=== PATIENT | female | born 1970 | race Caucasian/White ===

== ENCOUNTER → 2016-09-03 | Outpatient (CLI) | payer BC ==
[2016-09-03 14:08] VITALS: BP 125/75; PULSE 80; RESP 16; TEMP 97.7; BMI 25.0
--- NOTE | 2016-10-09 02:57 | P.PN ---
Progress Note - Text DATE OF SERVICE: 09/03/2016 CHIEF COMPLAINT: Bariatric assessment. HISTORY OF PRESENT ILLNESS: Addison Oviedo is a 46-year-old female who was last seen at the bariatric center in April 2016 now 5 months ago. At her height of 5 feet 9 inches, her ideal body weight is 168 pounds. Her highest weight was 260 pounds. Today she comes in weighing 169 pounds. She has maintained a 91 pounds weight loss. Actually, she has gained 8 pounds in the last for 5 months. Percent excess weight loss is 99%. Body mass index is reduced at 38.5 down to 25.1. Total BMI point reduction is 13.4. She reports hunger. She presents for further evaluation and management. PAST MEDICAL HISTORY: 1. Morbid obesity, resolved. PAST SURGICAL HISTORY: 1. Lap band surgery 2005. 2. Panniculectomy. 3. Breast lift. 4. Inguinal hernia repair. 5. Tubal ligation. MEDICATIONS: Multivitamins. ALLERGIES: Denies. SOCIAL HISTORY: Former tobacco user. She is . FAMILY HISTORY: Pertinent for coronary artery disease including triple bypass, hypertension. REVIEW OF SYSTEMS: CONSTITUTIONAL: Total weight loss of 91 pounds. Weight gain of 8 pounds in 5 months. Percent excess weight loss of 99%. [place] body weight of 168 pounds. Initial weight 260 pounds. She is only overweight x 1 pound. Body mass index reduced from 38.5 down to 25.3, BMI point reduction is 13.4. GASTROINTESTINAL: No reports of gastroesophageal reflux. No reports of change in bowel habits. MUSCULOSKELETAL: No reports of joint pain or back pain. HEENT: Denies any trouble with vision, hearing or nosebleeds. No difficulty swallowing. LYMPHATIC: The patient denies any lumps and bumps around the neck. ENDOCRINE: Denies any thyroid disorders. Denies any blood sugar glucose intolerance. RESPIRATORY: Denies pneumonia. Denies any troubles with breathing or dyspnea on exertion. CARDIOVASCULAR: Denies any chest pain, palpitations, or recent heart attacks. GENITOURINARY: Denies any blood in urine or increased urinary frequency. NEUROLOGIC: Denies any numbness or tingling along the distal extremities. No seizure disorders or headaches. PSYCHIATRIC: Denies depression or suidical ideation. HEMATOLOGIC: Denies any abnormal bleeding or bruising. PHYSICAL EXAM: VITAL SIGNS: 97.7, 80, 16, 125/75; 5 feet 9 inches, 169 pounds. Body mass index 25.1. ABDOMEN: Soft. Nontender. No palpable incisional hernia. Nontender along the port site. GENERAL: Well-developed female no acute distress. HEENT: No scleral icterus. Extraocular movements grossly intact. Moist buccal mucosa. NECK: Supple without lymphadenopathy. RESPIRATORY: Chest nonlabored respirations. CARDIOVASCULAR: Regular rate and rhythm. MUSCULOSKELETAL: No clubbing, cyanosis or edema. NEURO: No focal or lateralizing signs. Cranial nerves II through XII grossly within normal limits. PSYCH: Appropriate affect. Alert and oriented to person, place, and time. ASSESSMENT: 1. History of adjustable gastric band. 2. Adjustment of gastric band. 3. Appetite. 4. Morbid obesity due to excess calories, now resolved. 5. Body mass index reduced from 38.5 down to 25.1. 6. Overweight. PLAN: 1. Recommend adjustment. 2. May also benefit from bariatric metabolic panel with weight gain. PROCEDURE: Adjustment of gastric band. DESCRIPTION: After verbal consent, the patient was laid supine. The skin was cleansed. The skin was localized with 1% lidocaine without epinephrine 1 mL. A 22-gauge Alvarado needle was used to access the port to the left upper quadrant; 2.6 mL was found in the band and 0.6 mL was added. Total was 3.2 mL. She was able to tolerate drinking with mild restrictive symptoms as expected. Recommend followup in approximately 4 weeks or sooner should she have persistent hunger.
== END | disposition home or self-care (01) ==
LOC: BARWHC3 13:25
PROVIDERS: ATTEND Surgery Plastic and Reconstructive Surgery
DX: Z48.815 Encounter for surgical aftercare following surgery on the digestive system (principal); E66.3 Overweight; Z68.25 Body mass index [BMI] 25.0-25.9, adult; Z98.84 Bariatric surgery status
CPT/HCPCS: 99212

== ENCOUNTER → 2017-11-04 | Outpatient (CLI) | payer BC ==
--- NOTE | 2017-11-04 17:44 | P.PN ---
Subjective Progress Note Date: 11/04/17 DATE OF SERVICE: 11/04/2017 CHIEF COMPLAINT: Bariatric assessment. HISTORY OF PRESENT ILLNESS: Addison Oviedo is a 47-year-old female who was last seen at the bariatric center in March 2017 now 7 months ago. At her height of 5 feet 9 inches, her ideal body weight is 168 pounds. Her highest weight was 260 pounds. Today she comes in with weight gain. Body mass index is reduced at 38.5. She reports hunger. She presents for further evaluation and management. She had fluid removed last March 2017. 0.[address] Haynes. She denies GERD. PAST MEDICAL HISTORY: 1. Morbid obesity, initial BMI 38.5 2. Gastroesophageal reflux disease PAST SURGICAL HISTORY: 1. Lap band surgery 2005. 2. Panniculectomy. 3. Breast lift. 4. Inguinal hernia repair. 5. Tubal ligation. MEDICATIONS: Multivitamins. ALLERGIES: Denies. SOCIAL HISTORY: Former tobacco user. She is . FAMILY HISTORY: Pertinent for coronary artery disease including triple bypass, hypertension. REVIEW OF SYSTEMS: CONSTITUTIONAL: [place] body weight of 168 pounds. Initial weight 260 pounds. Body mass index reduced from 38.5. GASTROINTESTINAL: No reports of gastroesophageal reflux. No reports of change in bowel habits. MUSCULOSKELETAL: No reports of joint pain or back pain. HEENT: Denies any trouble with vision, hearing or nosebleeds. No difficulty swallowing. LYMPHATIC: The patient denies any lumps and bumps around the neck. ENDOCRINE: Denies any thyroid disorders. Denies any blood sugar glucose intolerance. RESPIRATORY: Denies pneumonia. Denies any troubles with breathing or dyspnea on exertion. CARDIOVASCULAR: Denies any chest pain, palpitations, or recent heart attacks. GENITOURINARY: Denies any blood in urine or increased urinary frequency. NEUROLOGIC: Denies any numbness or tingling along the distal extremities. No seizure disorders or headaches. PSYCHIATRIC: Denies depression or suidical ideation. HEMATOLOGIC: Denies any abnormal bleeding or bruising. PHYSICAL EXAM: VITAL SIGNS: 5 feet 9 inches Vital Signs Temp 98.5 F 11/04/17 17:47 Pulse 76 11/04/17 17:47 Resp 16 11/04/17 17:47 BP 118/73 11/04/17 17:47 Pulse Ox ABDOMEN: Soft. Nontender. No palpable incisional hernia. Nontender along the port site. GENERAL: Well-developed female no acute distress. HEENT: No scleral icterus. Extraocular movements grossly intact. Moist buccal mucosa. NECK: Supple without lymphadenopathy. RESPIRATORY: Chest nonlabored respirations. CARDIOVASCULAR: Regular rate and rhythm. MUSCULOSKELETAL: No clubbing, cyanosis or edema. NEURO: No focal or lateralizing signs. Cranial nerves II through XII grossly within normal limits. PSYCH: Appropriate affect. Alert and oriented to person, place, and time. SKIN: Well perfused. Good skin turgor. ASSESSMENT: 1. History of adjustable gastric band. 2. Adjustment of gastric band. 3. Appetite. 4. Morbid obesity due to excess calories, now resolved. 5. Body mass index reduced from 38.5. 6. Overweight. PLAN: 1. Band evaluated with 1.5 mL 2. Added 0.4 mL 3. Total of 1.9 mL 4. Follow as needed. PROCEDURE: Adjustment of gastric band. DESCRIPTION: After verbal consent, the patient was laid supine. The skin was cleansed. The skin was localized with 1% lidocaine without epinephrine 1 mL. A 22-gauge Alvarado needle was used to access the port to the left upper quadrant; 1.5 mL was found in the band and 0.4 mL was added. Total was 1.9 mL. She was able to tolerate drinking with mild restrictive symptoms as expected. Recommend followup in approximately 4 weeks or sooner should she have persistent hunger.
[2017-11-04 17:50] VITALS: BP 118/73; PULSE 76; RESP 16; TEMP 98.5
== END | disposition home or self-care (01) ==
LOC: BARWHC3 15:37
PROVIDERS: ATTEND Surgery Plastic and Reconstructive Surgery
DX: E66.01 Morbid (severe) obesity due to excess calories (principal); Z98.84 Bariatric surgery status; Z68.38 Body mass index [BMI] 38.0-38.9, adult
CPT/HCPCS: 99212

== ENCOUNTER → 2018-02-24 | Outpatient (CLI) | payer BC ==
--- NOTE | 2018-02-24 16:11 | P.PN ---
Subjective Progress Note Date: 02/24/18 DATE OF SERVICE: 02/24/2018 CHIEF COMPLAINT: Bariatric assessment. HISTORY OF PRESENT ILLNESS: Addison Oviedo is a 48-year-old female who is status adjustable gastric band placement. She reports moderate weight gain. At her height of 5 feet 9 inches, her ideal body weight is 168 pounds. Her highest weight was 260 pounds. Today she comes in with weight gain. Body mass index was 38.5. Lifetime weight loss 82 pounds. Percent excess weight loss 89%. PAST MEDICAL HISTORY: 1. Morbid obesity, initial BMI 38.5 2. Gastroesophageal reflux disease PAST SURGICAL HISTORY: 1. Lap band surgery 2005. 2. Panniculectomy. 3. Breast lift. 4. Inguinal hernia repair. 5. Tubal ligation. MEDICATIONS: Multivitamins. ALLERGIES: Denies. SOCIAL HISTORY: Former tobacco user. She is . FAMILY HISTORY: Pertinent for coronary artery disease including triple bypass, hypertension. REVIEW OF SYSTEMS: CONSTITUTIONAL: [place] body weight of 168 pounds. Initial weight 260 pounds. Body mass index reduced from 38.5. GASTROINTESTINAL: No reports of gastroesophageal reflux. No reports of change in bowel habits. MUSCULOSKELETAL: No reports of joint pain or back pain. HEENT: Denies any trouble with vision, hearing or nosebleeds. No difficulty swallowing. LYMPHATIC: The patient denies any lumps and bumps around the neck. ENDOCRINE: Denies any thyroid disorders. Denies any blood sugar glucose intolerance. RESPIRATORY: Denies pneumonia. Denies any troubles with breathing or dyspnea on exertion. CARDIOVASCULAR: Denies any chest pain, palpitations, or recent heart attacks. GENITOURINARY: Denies any blood in urine or increased urinary frequency. NEUROLOGIC: Denies any numbness or tingling along the distal extremities. No seizure disorders or headaches. PSYCHIATRIC: Denies depression or suidical ideation. HEMATOLOGIC: Denies any abnormal bleeding or bruising. PHYSICAL EXAM: VITAL SIGNS: 5 feet 9 inches, 178 pounds BMI 26.3 Vital Signs Temp 98.4 F 02/24/18 16:14 Pulse 76 02/24/18 16:14 Resp 16 02/24/18 16:14 BP 118/73 02/24/18 16:14 Pulse Ox ABDOMEN: Soft. Nontender. No palpable incisional hernia. Nontender along the port site. GENERAL: Well-developed female no acute distress. HEENT: No scleral icterus. Extraocular movements grossly intact. Moist buccal mucosa. NECK: Supple without lymphadenopathy. RESPIRATORY: Chest nonlabored respirations. CARDIOVASCULAR: Regular rate and rhythm. MUSCULOSKELETAL: No clubbing, cyanosis or edema. NEURO: No focal or lateralizing signs. Cranial nerves II through XII grossly within normal limits. PSYCH: Appropriate affect. Alert and oriented to person, place, and time. SKIN: Well perfused. Good skin turgor. ASSESSMENT: 1. History of adjustable gastric band. 2. Adjustment of gastric band. 3. Morbid obesity due to excess calories, now resolved. PLAN: 1. Adjustment required more than 2 sticks needed at [facility]. 2. Prior goal of 3.6 mL 3. She had 1.2 mL in 4. Added 0.8 mL 5. Total of 2.0 mL PROCEDURE: Adjustment of gastric band. DESCRIPTION: After verbal consent, the patient was laid supine. The skin was cleansed. The skin was localized with 1% lidocaine without epinephrine 1 mL. A 22-gauge Alvarado needle was used to access the port to the left upper quadrant; 1.2 mL was found in the band and 0.8 mL was added. Total was 2.0 mL. She was able to tolerate drinking with mild restrictive symptoms as expected. Recommend followup as needed.
[2018-02-24 16:26] VITALS: BP 118/73; PULSE 76; RESP 16; TEMP 98.4; BMI 26.3
== END | disposition home or self-care (01) ==
LOC: BARWHC3 13:59
PROVIDERS: ATTEND Surgery Plastic and Reconstructive Surgery
DX: Z48.815 Encounter for surgical aftercare following surgery on the digestive system (principal); Z87.891 Personal history of nicotine dependence; Z79.899 Other long term (current) drug therapy; Z98.890 Other specified postprocedural states; Z98.84 Bariatric surgery status
CPT/HCPCS: 99212

== ENCOUNTER → 2018-07-07 | Outpatient (CLI) | payer BC ==
[2018-07-07 15:37] VITALS: BP 131/92; PULSE 88; TEMP 97.6; BMI 25.7
--- NOTE | 2018-07-07 15:59 | P.PN ---
Subjective Progress Note Date: 07/07/18 DATE OF SERVICE: 07/07/2018 CHIEF COMPLAINT: Bariatric assessment. HISTORY OF PRESENT ILLNESS: Addison Oviedo is a 48-year-old female who is status adjustable gastric band placement. She is walking daily. She reports she wants to get down to 150s. At her height of 5 feet 9 inches, her ideal body weight is 168 pounds. Her highest weight was 260 pounds. Today she comes in 174 pounds from 178 pounds, 4 months ago. She has lost 4 pounds, 4 months. Body mass index was 38.5. Today BMI is 25.7. Lifetime weight loss is 86 pounds. Percent excess weight loss 94%. PAST MEDICAL HISTORY: 1. Morbid obesity, initial BMI 38.5 2. Gastroesophageal reflux disease PAST SURGICAL HISTORY: 1. Lap band surgery 2005. 2. Panniculectomy. 3. Breast lift. 4. Inguinal hernia repair. 5. Tubal ligation. MEDICATIONS: Multivitamins. ALLERGIES: Denies. SOCIAL HISTORY: Former tobacco user. She is . FAMILY HISTORY: Pertinent for coronary artery disease including triple bypass, hypertension. REVIEW OF SYSTEMS: CONSTITUTIONAL: [place] body weight of 168 pounds. Initial weight 260 pounds. Body mass index reduced from 38.5. GASTROINTESTINAL: No reports of gastroesophageal reflux. No reports of change in bowel habits. MUSCULOSKELETAL: No reports of joint pain or back pain. HEENT: Denies any trouble with vision, hearing or nosebleeds. No difficulty swallowing. LYMPHATIC: The patient denies any lumps and bumps around the neck. ENDOCRINE: Denies any thyroid disorders. Denies any blood sugar glucose intolerance. RESPIRATORY: Denies pneumonia. Denies any troubles with breathing or dyspnea on exertion. CARDIOVASCULAR: Denies any chest pain, palpitations, or recent heart attacks. GENITOURINARY: Denies any blood in urine or increased urinary frequency. NEUROLOGIC: Denies any numbness or tingling along the distal extremities. No seizure disorders or headaches. PSYCHIATRIC: Denies depression or suidical ideation. HEMATOLOGIC: Denies any abnormal bleeding or bruising. PHYSICAL EXAM: VITAL SIGNS: 5 feet 9 inches, 174 pounds BMI 25.7 Vital Signs Temp 97.6 F 07/07/18 15:33 Pulse 88 07/07/18 15:33 Resp BP 131/92 07/07/18 15:33 Pulse Ox ABDOMEN: Soft. Nontender. No palpable incisional hernia. Nontender along the port site. GENERAL: Well-developed female no acute distress. HEENT: No scleral icterus. Extraocular movements grossly intact. Moist buccal mucosa. NECK: Supple without lymphadenopathy. RESPIRATORY: Chest nonlabored respirations. CARDIOVASCULAR: Regular rate and rhythm. MUSCULOSKELETAL: No clubbing, cyanosis or edema. NEURO: No focal or lateralizing signs. Cranial nerves II through XII grossly within normal limits. PSYCH: Appropriate affect. Alert and oriented to person, place, and time. SKIN: Well perfused. Good skin turgor. ASSESSMENT: 1. History of adjustable gastric band. 2. Adjustment of gastric band. 3. Morbid obesity due to excess calories, now resolved. 4. Dietary surveillance and counseling. PLAN: 1. She reports moderate hunger and agree with adjustment. 2. Apple cider vinegar home remedy described for hunger 3. Recommend increase protein intake to 85 grams daily 4. Prior goal of 3.6 mL 5. She had 2.0 mL in 6. Added 0.3 mL 7. Total of 2.3 mL PROCEDURE: Adjustment of gastric band. DESCRIPTION: After verbal consent, the patient was laid supine. The skin was cleansed. The skin was localized with 1% lidocaine without epinephrine 1 mL. A 22-gauge Alvarado needle was used to access the port to the left upper quadrant; 2.0 mL was found in the band and 0.3 mL was added. Total was 2.3 mL. She was able to tolerate drinking with mild restrictive symptoms as expected. Recommend followup as needed. Objective - Vital Signs Vital signs: Vital Signs Temp 97.6 F 07/07/18 15:33 Pulse 88 07/07/18 15:33 Resp BP 131/92 07/07/18 15:33 Pulse Ox Intake & Output 07/06/18 07/07/18 07/07/18 18:59 06:59 18:59 Weight 78.925 kg
== END | disposition home or self-care (01) ==
LOC: BARWHC3 14:18
PROVIDERS: ATTEND Surgery Plastic and Reconstructive Surgery
DX: E66.01 Morbid (severe) obesity due to excess calories (principal); R63.4 Abnormal weight loss; K21.9 Gastro-esophageal reflux disease without esophagitis; Z98.84 Bariatric surgery status; Z98.51 Tubal ligation status; Z87.891 Personal history of nicotine dependence; Z82.49 Family history of ischemic heart disease and other diseases of the circulatory system; Z71.3 Dietary counseling and surveillance; Z68.25 Body mass index [BMI] 25.0-25.9, adult
CPT/HCPCS: 99212

== ENCOUNTER → 2018-10-27 | Outpatient (CLI) | payer BC ==
[2018-10-27 16:21] VITALS: BP 158/98; PULSE 80; RESP 16; TEMP 97.6; BMI 27.3
--- NOTE | 2018-10-27 17:04 | P.PN ---
Subjective Progress Note Date: 10/27/18 DATE OF SERVICE: 10/27/2018 CHIEF COMPLAINT: Morbid obesity HISTORY OF PRESENT ILLNESS: Addison Oviedo is a 48-year-old female who is status adjustable gastric band placement. She is doing well. She has gained moderate weight. She had fluid previously removed from her band over 4 months ago. At her height of 5 feet 9 inches, her ideal body weight is 168 pounds. Her highest weight was 260 pounds. Today she comes in 185 pounds from 174 pounds, 4 months ago. She has gained 11 pounds, 4 months. Body mass index was 38.5. Today BMI is 27.3. Lifetime weight loss is 75 pounds. Percent excess weight loss 82%. PHYSICAL EXAM: VITAL SIGNS: 5 feet 9 inches, 185 pounds BMI 27.3 Vital Signs Temp 97.6 F 10/27/18 16:19 Pulse 80 10/27/18 16:19 Resp 16 10/27/18 16:19 BP 158/98 10/27/18 16:19 Pulse Ox ABDOMEN: Soft. Nontender. No palpable incisional hernia. Nontender along the port site. GENERAL: Well-developed female no acute distress. HEENT: No scleral icterus. Extraocular movements grossly intact. Moist buccal mucosa. NECK: Supple without lymphadenopathy. RESPIRATORY: Chest nonlabored respirations. CARDIOVASCULAR: Regular rate and rhythm. MUSCULOSKELETAL: No clubbing, cyanosis or edema. NEURO: No focal or lateralizing signs. Cranial nerves II through XII grossly within normal limits. PSYCH: Appropriate affect. Alert and oriented to person, place, and time. SKIN: Well perfused. Good skin turgor. ASSESSMENT: 1. History of adjustable gastric band. 2. Adjustment of gastric band. 3. Morbid obesity due to excess calories, 38.5 to 27.3 4. Dietary surveillance and counseling. PLAN: 1. Band adjustment advised with all fluid removed from prior. 2. Prior goal of 3.6 mL 3. Added 1.8 mL PROCEDURE: Adjustment of gastric band. DESCRIPTION: After verbal consent, the patient was laid supine. The skin was cleansed. The skin was localized with 1% lidocaine without epinephrine 1 mL. A 22-gauge Alvarado needle was used to access the port to the left upper quadrant; 1.8 mL was added. She was able to tolerate drinking with mild restrictive symptoms as expected. Recommend followup as needed. Objective - Vital Signs Vital signs: Vital Signs Temp 97.6 F 10/27/18 16:19 Pulse 80 10/27/18 16:19 Resp 16 10/27/18 16:19 BP 158/98 10/27/18 16:19 Pulse Ox Intake & Output 10/26/18 10/27/18 10/27/18 18:59 06:59 18:59 Weight 83.943 kg
== END | disposition home or self-care (01) ==
LOC: BARWHC3 14:22
PROVIDERS: ATTEND Surgery Plastic and Reconstructive Surgery
DX: Z48.815 Encounter for surgical aftercare following surgery on the digestive system (principal); E66.01 Morbid (severe) obesity due to excess calories; Z71.3 Dietary counseling and surveillance; Z68.27 Body mass index [BMI] 27.0-27.9, adult; Z98.84 Bariatric surgery status
CPT/HCPCS: 99212

== ENCOUNTER → 2019-01-05 | Outpatient (CLI) | payer BC ==
[2019-01-05 14:54] VITALS: BP 114/82; PULSE 91; RESP 16; TEMP 98; BMI 27.0
--- NOTE | 2019-01-05 15:33 | P.PN ---
Subjective Progress Note Date: 01/05/19 DATE OF SERVICE: 01/05/2019 CHIEF COMPLAINT: Morbid obesity HISTORY OF PRESENT ILLNESS: Addison Oviedo is a 48-year-old female who is status adjustable gastric band placement. She is comes in with hunger. No reports of abdominal pain. No nausea or vomiting. No fevers or chills. At her height of 5 feet 9 inches, her ideal body weight is 168 pounds. Her highest weight was 260 pounds. Today she comes in 183 pounds from 185 pounds, 2 months ago. She has lost 2 pounds, 2 months. Body mass index was 38.5. Today BMI is 27.0. Lifetime weight loss is 77 pounds. Percent excess weight loss 84%. PHYSICAL EXAM: VITAL SIGNS: 5 feet 9 inches, 183 pounds BMI 27.0 Vital Signs Temp 98 F 01/05/19 14:51 Pulse 91 01/05/19 14:51 Resp 16 01/05/19 14:51 BP 114/82 01/05/19 14:51 Pulse Ox ABDOMEN: Soft. Nontender. No palpable incisional hernia. Nontender along the port site. GENERAL: Well-developed female no acute distress. HEENT: No scleral icterus. Extraocular movements grossly intact. Moist buccal mucosa. NECK: Supple without lymphadenopathy. RESPIRATORY: Chest nonlabored respirations. CARDIOVASCULAR: Regular rate and rhythm. MUSCULOSKELETAL: No clubbing, cyanosis or edema. NEURO: No focal or lateralizing signs. Cranial nerves II through XII grossly within normal limits. PSYCH: Appropriate affect. Alert and oriented to person, place, and time. SKIN: Well perfused. Good skin turgor. ASSESSMENT: 1. History of adjustable gastric band. 2. Adjustment of gastric band. 3. Morbid obesity due to excess calories, 38.5 to 27.3 4. Dietary surveillance and counseling. PLAN: 1. Band adjustment advised with all fluid removed from prior. 2. Prior goal of 3.6 mL 3. Current of 2.0 mL 4. Placed 0.4 mL with total of 2.4 mL PROCEDURE: Adjustment of gastric band. DESCRIPTION: After verbal consent, the patient was laid supine. The skin was cleansed. The skin was localized with 1% lidocaine without epinephrine 1 mL. Prior of 2.0 mL. A 22-gauge Alvarado needle was used to access the port to the left upper quadrant; 0.4 mL was added. Total of 2.4 mL. She was able to tolerate drinking with mild restrictive symptoms as expected. Recommend followup as needed. Objective - Vital Signs Vital signs: Vital Signs Temp 98 F 01/05/19 14:51 Pulse 91 01/05/19 14:51 Resp 16 01/05/19 14:51 BP 114/82 01/05/19 14:51 Pulse Ox Intake & Output 01/04/19 01/05/19 01/05/19 18:59 06:59 18:59 Weight 83.007 kg - Labs CBC & Chem 7: 01/05/19 15:45 01/05/19 15:45
[2019-01-05 16:00] LABS: Anisocytosis Slight; HCT 33.5 % (34.0-46.0); HGB 10.5 gm/dL (11.4-16.0); Hypochromasia Marked; MCH 23.5 pg (25.0-35.0); MCHC 31.4 g/dL (31.0-37.0); MCV 74.8 fL (80.0-100.0); Mean Platelet Volume 6.4; Microcytosis Slight; Platelet Count 330 k/uL (150-450); RBC 4.48 m/uL (3.80-5.40); RDW 16.3 % (11.5-15.5); WBC 6.5 k/uL (3.8-10.6)
[2019-01-05 16:06] LABS: INR 0.9 (<1.2); Partial Thromboplastin Time 24.2 sec (22.0-30.0); Prothrombin Time 9.9 sec (9.0-12.0)
[2019-01-06 00:10] LABS: African American GFR (CKD) 100.3 (60.0-200.0); Albumin 4.2 g/dL (3.80-4.90); Albumin/Globulin Ratio 1.62 (1.60-3.17); Anion Gap 9.1 mmol/L (4.00-12.00); BUN/Creat Ratio 13.75 Ratio (12.00-20.00); Carbon Dioxide 26.9 mmol/L (21.6-31.8); Chol/HDL Ratio 3.75; Globulin 2.6 g/dL (1.6-3.3); Magnesium 1.7 mg/dL (1.5-2.4); Phosphorus 2.8 mg/dL (2.4-5.1); Potassium 3.9 mmol/L (3.5-5.5); Total Bilirubin 0.2 mg/dL (0.3-1.2); Total Protein 6.8 g/dL (6.2-8.2)
[2019-01-06 00:31] LABS: Iron Saturation 3.39 (12.00-45.00)
[2019-01-06 00:38] LABS: Vitamin D 25 Hydroxy 32.3 ng/mL (30.0-100.0)
[2019-01-06 01:02] LABS: Folate, Serum >24.0 ng/mL
[2019-01-06 01:45] LABS: Hemoglobin A1C 5.4 % (4.0-6.0)
[2019-01-06 11:46] LABS: Zinc, Serum 67 ug/dL (60-130)
[2019-01-07 06:38] LABS: Vitamin A 40 ug/dL (38-106)
[2019-01-07 12:14] LABS: Vit B1(Thiamine) 54 ug/L (38-122)
[2019-01-08 20:19] LABS: Selenium 123 mcg/L (63-160)
== END | disposition home or self-care (01) ==
LOC: BARWHC3 14:25
PROVIDERS: ATTEND Surgery Plastic and Reconstructive Surgery
DX: E66.01 Morbid (severe) obesity due to excess calories (principal); E21.1 Secondary hyperparathyroidism, not elsewhere classified; E89.1 Postprocedural hypoinsulinemia; D50.9 Iron deficiency anemia, unspecified; K44.0 Diaphragmatic hernia with obstruction, without gangrene; E55.9 Vitamin D deficiency, unspecified; K74.1 Hepatic sclerosis; N19 Unspecified kidney failure; K50.90 Crohn's disease, unspecified, without complications; Z68.27 Body mass index [BMI] 27.0-27.9, adult; Z71.3 Dietary counseling and surveillance
CPT/HCPCS: 80053; 80061; 82306; 82525; 82607; 82728; 82746; 83036; 83540; 83550; 83735; 83970; 84100; 84134; 84255; 84425; 84443; 84590; 84630; 85027; 85610; 85730; 99212

== ENCOUNTER → 2019-05-05 | Outpatient (CLI) | payer BC ==
[2019-05-05 09:26] VITALS: BP 119/83; PULSE 80; TEMP 97.9; BMI 25.9
--- NOTE | 2019-05-05 10:14 | P.PN ---
Subjective Progress Note Date: 05/05/19 DATE OF SERVICE: 05/05/2019 CHIEF COMPLAINT: Morbid obesity HISTORY OF PRESENT ILLNESS: Addison Oviedo is a 49-year-old female who is status adjustable gastric band placement. She does not have a food journal. She has increased carbohydrate intake. She denies much restriction. At her height of 5 feet 9 inches, her ideal body weight is 168 pounds. Her highest weight was 260 pounds. Today she comes in 176 pounds from 183 pounds, 4 months ago. She has lost 7 pounds, 4 months. Body mass index was 38.5. Today BMI is 26.0. Lifetime weight loss is 84 pounds. Percent excess weight loss 92 %. PHYSICAL EXAM: VITAL SIGNS: 5 feet 9 inches, 176 pounds BMI 26.0 Vital Signs Temp 97.9 F 05/05/19 09:20 Pulse 80 05/05/19 09:20 Resp BP 119/83 05/05/19 09:20 Pulse Ox ABDOMEN: Soft. Nontender. No palpable incisional hernia. Nontender along the port site. GENERAL: Well-developed female no acute distress. HEENT: No scleral icterus. Extraocular movements grossly intact. Moist buccal mucosa. NECK: Supple without lymphadenopathy. RESPIRATORY: Chest nonlabored respirations. CARDIOVASCULAR: Regular rate and rhythm. MUSCULOSKELETAL: No clubbing, cyanosis or edema. NEURO: No focal or lateralizing signs. Cranial nerves II through XII grossly within normal limits. PSYCH: Appropriate affect. Alert and oriented to person, place, and time. SKIN: Well perfused. Good skin turgor. ASSESSMENT: 1. History of adjustable gastric band. 2. Adjustment of gastric band. 3. Morbid obesity due to excess calories, 38.5 to 26.0 4. Dietary surveillance and counseling. PLAN: 1. Band adjustment advised 2. Prior goal of 3.6 mL 3. Current of 2.4 mL 4. Placed 0.5 mL with total of 2.9 mL 5. Recommend food diary journal. PROCEDURE: Adjustment of gastric band. DESCRIPTION: After verbal consent, the patient was laid supine. The skin was cleansed. The skin was localized with 1% lidocaine without epinephrine 1 mL. Prior of 2.4 mL. A 22-gauge Alvarado needle was used to access the port to the left upper quadrant; 0.5 mL was added. Total of 2.9 mL. She was able to tolerate drinking fluids. Recommend followup as needed. Objective - Vital Signs Vital signs: Vital Signs Temp 97.9 F 05/05/19 09:20 Pulse 80 05/05/19 09:20 Resp BP 119/83 05/05/19 09:20 Pulse Ox Intake & Output 05/04/19 05/05/19 05/05/19 18:59 06:59 18:59 Weight 79.832 kg
== END | disposition home or self-care (01) ==
LOC: BARWHC3 08:38
PROVIDERS: ATTEND Surgery Plastic and Reconstructive Surgery
DX: Z46.51 Encounter for fitting and adjustment of gastric lap band (principal); E66.01 Morbid (severe) obesity due to excess calories; Z98.84 Bariatric surgery status; Z71.3 Dietary counseling and surveillance; Z68.26 Body mass index [BMI] 26.0-26.9, adult
CPT/HCPCS: 99211; 99212